=== PATIENT | male | born 2000 | race Two or more races ===

== ENCOUNTER 2023-03-30 08:56 | Emergency (ER) | payer SELFPAY ==
[~2023-03-30] VITALS: Ht 177.8 cm; Wt 59.0 kg
[2023-03-30 09:10] VITALS: BP 111/76; PULSE 68; RESP 18; O2SAT 96
[2023-03-30] MEDS ORDERED: IBUP1TAB5 PO (10:43)
[2023-03-30] MEDS ORDERED: [UNRECOGNIZED DRUG - CODE] PO (11:12)
== END 2023-03-30 20:45 | disposition left against medical advice (07) ==
LOC: ER 08:56
DX: R50.9 Fever, unspecified (principal); R21 Rash and other nonspecific skin eruption; Z59.00 Homelessness unspecified; Z79.1 Long term (current) use of non-steroidal anti-inflammatories (NSAID); Z79.899 Other long term (current) drug therapy